=== PATIENT | female | born 1995 | race Caucasian/White ===

== ENCOUNTER 2017-09-29 20:04 | Emergency (ER) | payer OTHER ==
[2017-09-29 20:29] VITALS: BP 116/80; PULSE 96; TEMP 98.4; BMI 38.0
--- NOTE | 2017-09-29 20:55 | PDOC ---
History of Present Illness - General History Source: Patient Exam Limitations: No Limitations - History of Present Illness Initial Comments: 09/29/17 21:14 The patient is a 22 year old female with no significant past medical history who presents to the emergency department with vaginal bleeding and pelvic cramping for 5 days. The patient states that she was at urgent care, gave a urine sample, and was sent to the ER for a pelvic exam before receiving the results of her urine sample. She states that she has a very irregular menses and that her last period was 07/10-07/26. She denies a history of fibroids. She reports a family history of diabetes (father). The patient states that she is not on control but that she is not . <Chris Peng - Last Filed: 09/29/17 21:14> <Wyatt Masterson - Last Filed: 09/30/17 01:03> - General Chief Complaint: Vaginal Bleeding Stated Complaint: PELVIC PAIN Past History <Chris Peng - Last Filed: 09/29/17 21:14> - Immunization History Immunization Up to Date: Yes - Suicide/Smoking/Psychosocial Hx Smoking History: Never smoked Hx Alcohol Use: No Drug/Substance Use Hx: No <Wyatt Masterson - Last Filed: 09/30/17 01:03> - Past Medical History Allergies/Adverse Reactions: Allergies Allergy/AdvReac Type Severity Reaction Status Date / Time No Known Allergies Allergy Verified 08/23/15 15:14 Home Medications: Ambulatory Orders Naproxen [Naprosyn -] 500 mg PO BID #14 tablet 08/23/15 Review of Systems - Review of Systems Able to Perform ROS?: Yes Comments:: 09/29/17 21:14 GENERAL/CONSTITUTIONAL: No fever or chills. No weakness. HEAD, EYES, EARS, NOSE AND THROAT: No change in vision. No ear pain or discharge. No sore throat. CARDIOVASCULAR: No chest pain or shortness of breath. RESPIRATORY: No cough, wheezing, or hemoptysis. GASTROINTESTINAL: No nausea, vomiting, diarrhea or constipation. GENITOURINARY: (+) Vaginal bleeding, Pelvic cramping. No dysuria, frequency, or change in urination. MUSCULOSKELETAL: No joint or muscle swelling or pain. No neck or back pain. SKIN: No rash NEUROLOGIC: No headache, vertigo, loss of consciousness, or change in strength/ sensation. ENDOCRINE: No increased thirst. No abnormal weight change. HEMATOLOGIC/LYMPHATIC: No anemia, easy bleeding, or history of blood clots. ALLERGIC/IMMUNOLOGIC: No hives or skin allergy. <Chris Peng - Last Filed: 09/29/17 21:14> *Physical Exam - Vital Signs Last Vital Signs Temp Pulse Resp BP Pulse Ox 98.4 F 96 H 18 116/80 99 09/29/17 20:25 09/29/17 20:25 09/29/17 20:25 09/29/17 20:25 09/29/17 20:25 - Physical Exam Comments: 09/29/17 21:14 GENERAL: Awake, alert, and fully oriented, in no acute distress HEAD: No signs of trauma EYES: PERRLA, EOMI, sclera anicteric, conjunctiva clear ENT: Auricles normal inspection, hearing grossly normal, nares patent, oropharynx clear without exudates. Moist mucosa NECK: Normal ROM, supple, no lymphadenopathy, JVD, or masses LUNGS: Breath sounds equal, clear to auscultation bilaterally. No wheezes, and no crackles HEART: Regular rate and rhythm, normal S1 and S2, no murmurs, rubs or gallops ABDOMEN: Soft, nontender, normoactive bowel sounds. No guarding, no rebound. No masses PELVIC: EXTREMITIES: Normal range of motion, no edema. No clubbing or cyanosis. No cords, erythema, or tenderness NEUROLOGICAL: Cranial nerves II through XII grossly intact. Normal speech, normal gait SKIN: Warm, Dry, normal turgor, no rashes or lesions noted. <Chris Peng - Last Filed: 09/29/17 21:14> - Vital Signs Last Vital Signs Temp Pulse Resp BP Pulse Ox 98.4 F 96 H 18 116/80 99 09/29/17 20:25 09/29/17 20:25 09/29/17 20:25 09/29/17 20:25 09/29/17 20:25 <Wyatt Masterson - Last Filed: 09/30/17 01:03> ED Treatment Course - LABORATORY CBC & Chemistry Diagram: 09/29/17 21:29 09/29/17 21:29 <Wyatt Masterson - Last Filed: 09/30/17 01:03> *DC/Admit/Observation/Transfer - Attestations Scribe Attestion: 09/29/17 21:15 Documentation prepared by Chris Peng, acting as medical assisting instructor for Wyatt Masterson DO. <Chris Peng - Last Filed: 09/29/17 21:14> - Discharge Dispostion Admit: No - Attestations Physician Attestion: 09/29/17 20:54 I, Dr. Wyatt Masterson, attest that this document has been prepared under my direction and personally reviewed by me in its entirety. I further attest, that it accurately reflects all work, treatment, procedures and medical decision -making performed by me. <Wyatt Masterson - Last Filed: 09/30/17 01:03> Diagnosis at time of Disposition: Dysfunctional uterine bleeding, Metrorrhagia, Dysmenorrhea Menorrhagia Qualifiers: Menorrahagia type: with irregular cycle Qualified Code(s): N92.1 - Excessive and frequent menstruation with irregular cycle - Discharge Dispostion Disposition: HOME Condition at time of disposition: Improved - Referrals Referrals: Orlando Steel [Primary Care Provider] - Matilda Mcknight MD [Staff Physician] - - Patient Instructions Printed Discharge Instructions: Painful Menstrual Periods, DI for Dysmenorrhea Additional Instructions: Bella - So sorry this hurts so much. Follow up with OB/BYN Dr. Mcknight. Use the Naprosyn for pain. Return to us if worse or new symptoms occur. Best- Dr. Wyatt Masterson - Post Discharge Activity
[2017-09-29] MEDS ORDERED: SODIUM CHLORIDE 1,000 ML IV STA (21:35)
[2017-09-29 21:45] LABS: BASO % 0.8 % (0-2.0); EOS % 4.6 % (0-4.5); HEMATOCRIT 39.8 % (32.4-45.2); HEMOGLOBIN 13.4 GM/dL (10.7-15.3); LYMPH % 32.3 % (8-40); MCH 27.1 pg (25.7-33.7); MCHC 33.6 g/dl (32.0-36.0); MEAN CELL VOLUME 80.7 fl (80-96); MEAN PLT VOLUME 7.7 fl (7.5-11.1); MONO % 7.2 % (3.8-10.2); NEUT % 55.1 % (42.8-82.8); PLATELET COUNT 347 K/MM3 (134-434); RBC 4.93 M/mm3 (3.60-5.2); RDW 14.2 % (11.6-15.6); WHITE BLOOD COUNT 9.5 K/mm3 (4.0-10.0)
[2017-09-29 22:03] LABS: URINE APPEARANCE SLCLOUDY; URINE BILIRUBIN NEGATIVE (NEGATIVE); URINE BLOOD 3+ (NEGATIVE); URINE COLOR YELLOW; URINE GLUCOSE (UA) NEGATIVE (NEGATIVE); URINE KETONE NEGATIVE (NEGATIVE); URINE LEUK ESTERASE NEGATIVE (NEGATIVE); URINE NITRITE NEGATIVE (NEGATIVE); URINE PROTEIN NEGATIVE (NEGATIVE); URINE UROBILINOGEN NEGATIVE mg/dL (0.2-1.0)
[2017-09-29 22:15] LABS: EPI CELLS RARE /HPF (FEW); URINE MUCUS RARE
[2017-09-29 22:45] LABS: ALBUMIN 3.4 g/dl (3.4-5.0); ANION GAP 5 (8-16); BILIRUBIN,TOTAL 0.3 mg/dL (0.2-1.0); BLOOD UREA NITROGEN 9 mg/dL (7-18); CALCIUM 8.4 mg/dL (8.5-10.1); CHLORIDE 108 mmol/L (98-107); CO2 26 mmol/L (21-32); CREATININE 0.7 mg/dL (0.55-1.02); GLUCOSE,RANDOM 87 mg/dL (74-106); SGOT/AST 15 U/L (15-37); SGPT/ALT 40 U/L (12-78); SODIUM 139 mmol/L (136-145)
[2017-09-29 22:48] LABS: ALK PHOS 69 U/L (45-117); TOT PROT 6.8 g/dl (6.4-8.2)
== END 2017-09-30 01:08 | disposition home or self-care (01) ==
LOC: JER 20:04
PROC: 3E0337Z Introduction of Electrolytic and Water Balance Substance into Peripheral Vein, Percutaneous Approach (ICD-10-PCS; principal; 2017-09-29)
DX: N92.1 Excessive and frequent menstruation with irregular cycle (principal); N94.6 Dysmenorrhea, unspecified
CPT/HCPCS: 36415; 76830-TC; 80053; 81003; 81015; 84702; 84703; 85025; 87086; 99283-25